=== PATIENT | female | born 1975 | race Caucasian/White ===

== ENCOUNTER 2018-06-28 16:17 | Emergency (ER) | END 2018-06-28 20:00 | disposition home or self-care (01) ==

== ENCOUNTER 2019-02-21 18:58 | Emergency (ER) | payer SELFPAY ==
[~2019-02-21] VITALS: Ht 167.6 cm; Wt 75.7 kg
[~2019-02-21 18:58] MED LIST: IBUP-1542 PO
[2019-02-21 19:02] VITALS: Ht 167.6 cm; Wt 75.7 kg
[2019-02-21] MEDS ORDERED: KETOROLAC 30 MG INJ IM STA (23:39)
[2019-02-22] MEDS ORDERED: DOCU-144 PO (00:15)
[2019-02-22] MEDS ORDERED: HYDR25SU23 PR (00:15)
--- NOTE | 2019-02-22 00:19 | ERD ---
ER Documentation Chief Complaint Chief Complaint BLOOD IN STOOL SAT AND AGAIN TODAY HPI 43-year-old female with no reported past medical history who presents with complaint of bloody stools over the past 2 days. States she was wiping and noticed some clotting on the tissue first on Wednesday and again today. States she has history of chronic constipation and has been passing relatively hard stools. She denies any history of hemorrhoids. She otherwise denies fevers, chills, dizziness, nausea, vomiting, abdominal pain, diarrhea, or any other concerning symptoms. She denies any recent NSAID or medication use. She denies any family history of GI cancer. She denies any active drug abuse or alcohol abuse. At time of examination patient nontoxic-appearing no acute distress. ROS All systems reviewed and are negative except as per history of present illness. Medications Home Meds Active Scripts Hydrocortisone Acetate (Anusol-Hc) 25 Mg Supp.rect, 1 SUPP ND BID PRN for HEMORROID PAIN/ITCHING, #12 SUPP.RECT Prov:PAULINO ANAYA PA-C 02/22/19 Docusate Sodium* (Colace*) 100 Mg Capsule, 100 MG PO BID, #60 CAP Prov:PAULINO ANAYA PA-C 02/22/19 Ibuprofen* (Motrin*) 600 Mg Tab, 600 MG PO Q6, #30 TAB Prov:ALEJANDRO PHAN 06/28/18 Allergies Allergies: Coded Allergies: No Known Allergy (Unverified , 02/23/12) PMhx/Soc History of Surgery: Yes () Anesthesia Reaction: No Hx Neurological Disorder: No Hx Respiratory Disorders: Yes (ASTHMA) Hx Cardiac Disorders: No Hx Psychiatric Problems: No Hx Miscellaneous Medical Probl: No Hx Alcohol Use: No Hx Substance Use: No Hx Tobacco Use: No Smoking Status: Never smoker FmHx Family History: No diabetes, No coronary disease, No other Physical Exam Vitals Vital Signs Date Temp Pulse Resp B/P (MAP) Pulse Ox O2 O2 Flow FiO2 Time Delivery Rate 02/21/19 99.0 101 18 141/85 97 19:02 (103) Physical Exam I have reviewed the triage vital signs. Const: Well nourished, well developed, appears stated age Eyes: PERRL, no conjunctival injection HENT: NCAT, Neck supple without meningismus CV: RRR, Warm, well-perfused extremities RESP: CTAB, Unlabored respiratory effort GI: soft, non-tender, non-distended, no masses Rectal Exam: Normal tone, external nonerythematous hemorrhoids, Positive control Stool: Brown MSK: No gross deformities appreciated Skin: Warm, dry. No rashes Neuro: grossly non focal Psych: Appropriate mood and affect. Result Diagram: 02/21/19 0004 Results 24 hrs Laboratory Tests Test 02/21/19 00:04 02/21/19 23:54 White Blood Count 8.4 10^3/ul Red Blood Count 4.71 10^6/ul Hemoglobin 13.3 g/dl Hematocrit 40.2 % Mean Corpuscular Volume 85.4 fl Mean Corpuscular Hemoglobin 28.2 pg Mean Corpuscular Hemoglobin Concent 33.1 g/dl Red Cell Distribution Width 13.9 % Platelet Count 205 10^3/UL Mean Platelet Volume 10.9 fl Immature Granulocytes % 0.100 % Neutrophils % 84.0 % Lymphocytes % 11.5 % Monocytes % 2.9 % Eosinophils % 1.1 % Basophils % 0.4 % Nucleated Red Blood Cells % 0.0 /100WBC Immature Granulocytes # 0.010 10^3/ul Neutrophils # 7.0 10^3/ul Lymphocytes # 1.0 10^3/ul Monocytes # 0.2 10^3/ul Eosinophils # 0.1 10^3/ul Basophils # 0.0 10^3/ul Nucleated Red Blood Cells # 0.0 10^3/ul Urine Color YELLOW Urine Clarity SLIGHTLY CLOUDY Urine pH 5.0 Urine Specific [place] 1.018 Urine Ketones NEGATIVE mg/dL Urine Nitrite NEGATIVE mg/dL Urine Bilirubin NEGATIVE mg/dL Urine Urobilinogen NEGATIVE mg/dL Urine Leukocyte Esterase 1+ Aashish/ul Urine Microscopic RBC 1 /HPF Urine Microscopic WBC 4 /HPF Urine Squamous Epithelial Cells FEW /HPF Urine Mucus FEW /HPF Urine Hemoglobin NEGATIVE mg/dL Urine Glucose NEGATIVE mg/dL Urine Total Protein NEGATIVE mg/dl POC Beta HCG, Qualitative NEGATIVE Current Medications Medications Dose Sig/Katelyn Start Time Status Last (Trade) Ordered Route PRN Stop Time Admin Dose Reason Admin Ketorolac 30 mg ONCE STAT 02/21/19 DC 02/22/19 Tromethamine IM 23:39 00:09 (Toradol) 02/21/19 23:42 Procedures/MDM 43-year-old female presents blood per rectum. Patient examination significant for external hemorrhoid. I have low suspicion for any other acute process such as GI bleed, ulcer, GI cancer, or any other pathology warranting further emergent care work-up. Patient's hemoglobin and labs stable. Patient advised regarding hemorrhoid care, will discharge her with Colace as well as Anusol. Patient agrees to follow-up with PMD for continued care and treatment. ED course: H/H within normal limits, UA 1+ leukocyte esterase, 4 WBC but no reported urinary symptoms will elect not to treat at this time We will discharge her medications above, PMD follow-up DISPOSITION PLAN: We discussed follow up with the patient's primary care doctor within 24 to 48 hours. Patient counseled regarding my diagnostic impression and care plan. Prior to discharge all questions answered. Pt agrees with treatment plan and understands strict return precautions. Precautionary instructions provided including instructions to return to the ER if not improving or for any worsening or changing symptoms or concerns. Disclaimer: Inadvertent spelling and grammatical errors are likely due to EHR/dictation software use and do not reflect on the overall quality of patient care. Also, please note that the electronic time recorded on this note does not necessarily reflect the actual time of the patient encounter. Departure Diagnosis: Primary Impression: Bloody stool Condition: Stable Patient Instructions: Hemorrhoids Referrals: [facility] YOU HAVE RECEIVED A MEDICAL SCREENING EXAM AND THE RESULTS INDICATE THAT YOU DO NOT HAVE A CONDITION THAT REQUIRES URGENT TREATMENT IN THE EMERGENCY DEPARTMENT. FURTHER EVALUATION AND TREATMENT OF YOUR CONDITION CAN WAIT UNTIL YOU ARE SEEN IN YOUR DOCTORS OFFICE WITHIN THE NEXT 1-2 DAYS. IT IS YOUR RESPONSIBILITY TO MAKE AN APPOINTMENT FOR FOLOW-UP CARE. IF YOU HAVE A PRIMARY DOCTOR --you should call your primary doctor and schedule an appointment IF YOU DO NOT HAVE A PRIMARY DOCTOR YOU CAN CALL OUR PHYSICIAN REFERRAL HOTLINE AT IF YOU CAN NOT AFFORD TO SEE A PHYSICIAN YOU CAN CHOSE FROM THE FOLLOWING [facility] [address] [facility] [address] [facility] [address] [facility] [address] [facility] [address] [facility]. [facility] [address] Additional Instructions: Call your primary care doctor TOMORROW for an appointment during the next 2-3 days.See the doctor sooner or return here if your condition worsens before your appointment time. PAULINO ANAYA PA-C Feb 22, 2019 00:19
== END 2019-02-22 01:08 | disposition home or self-care (01) ==
LOC: FTE 18:58
DX: K92.1 Melena (principal); J45.909 Unspecified asthma, uncomplicated
CPT/HCPCS: 81001; 81025; 85025; 96372; 99284; J1885